=== PATIENT | male | born 1990 | race Caucasian/White ===

== ENCOUNTER 2020-01-26 15:21 | Emergency (ER) | payer MEDICAID, OTHER ==
[~2020-01-26] VITALS: Ht 188 cm; Wt 104.3 kg
--- NOTE | 2020-01-26 15:40 | NUR ---
Dr. Avendano at bedside for MSE
[2020-01-26] MEDS ORDERED: AZITHROMYCIN 250 MG TABLET ONE (15:42)
[2020-01-26] MEDS ORDERED: CEFTRIAXONE 500 MG VIAL ONE (15:42)
[2020-01-26] MEDS ORDERED: PENICILLIN G BENZATHINE 2.4 MMU/4 ML DISP.SYRIN IM ONE ×2 (15:42→15:45)
[2020-01-26] MEDS ORDERED: AZITHROMYCIN 250 MG TABLET PO ONE (15:45)
[2020-01-26] MEDS ORDERED: CEFTRIAXONE 1 G VIAL IM ONE (15:45)
--- NOTE | 2020-01-26 15:45 | NUR ---
present to addressograph operator Dr. Avendano at bedside
--- NOTE | 2020-01-26 15:52 | NUR ---
Patient discharged to home in stable condition. Written and verbal after care instructions given. Patient verbalizes understanding of instructions. Stressed follow up or return to ER for worsening s/s. Patient ambulated with steady gait. NAD noted
[2020-01-26 15:53] VITALS: BP 133/82
== END 2020-01-26 15:52 | disposition home or self-care (01) ==
LOC: ER 15:21
DX: A53.9 Syphilis, unspecified (principal); N48.1 Balanitis; R03.0 Elevated blood-pressure reading, without diagnosis of hypertension; Z86.19 Personal history of other infectious and parasitic diseases
CPT/HCPCS: 96372 ×2; 99284; J0696; A4663; Q0144

== ENCOUNTER 2020-03-24 08:23 | Emergency (ER) | payer OTHER ==
[~2020-03-24] VITALS: Ht 188 cm; Wt 104.3 kg
--- NOTE | 2020-03-24 08:44 | NUR ---
PT WAS EVALUATED BY DR PAREDES. PT WENT TO RESTROOM AND ELOPED FROM [facility] ([place]
== END 2020-03-24 09:05 | disposition left against medical advice (07) ==
LOC: ER 08:23
DX: S39.848A Other specified injuries of external genitals, initial encounter (principal); X58.XXXA Exposure to other specified factors, initial encounter; Y92.89 Other specified places as the place of occurrence of the external cause
CPT/HCPCS: A4663

== ENCOUNTER 2020-09-07 22:00 | Emergency (ER) | payer OTHER ==
[~2020-09-07] VITALS: Ht 188 cm; Wt 99.8 kg
--- NOTE | 2020-09-07 22:27 | NUR ---
Dr. Acosat at bedside for MSE.
[2020-09-07 22:44] VITALS: BP 151/93
--- NOTE | 2020-09-07 22:44 | NUR ---
Patient discharged to home in stable condition. Written and verbal after care instructions given. Patient verbalizes understanding of instructions. Stressed follow up or return to ER for worsening s/s.
== END 2020-09-07 22:45 | disposition home or self-care (01) ==
LOC: ER 22:02
DX: L40.9 Psoriasis, unspecified (principal)
CPT/HCPCS: A4663

== ENCOUNTER 2020-12-01 21:33 | Emergency (ER) | payer OTHER ==
[~2020-12-01] VITALS: Ht 188 cm; Wt 108.9 kg
[2020-12-01] MEDS ORDERED: SULFAMETH/TRIMETH 800/160 MG TABLET PO ONE (22:15)
[2020-12-01] MEDS ORDERED: PENICILLIN G BENZATHINE 2.4 MMU/4 ML DISP.SYRIN IM ONE ×2 (22:15→22:54)
[2020-12-01] MEDS ORDERED: DOXYCYCLINE HYCLATE 100 MG TABLET PO ONE (22:15)
[2020-12-01] MEDS ORDERED: CEFTRIAXONE 500 MG VIAL IM ONE (22:15)
[2020-12-01] MEDS ORDERED: DOXY100C2 PO (22:20)
[2020-12-01] MEDS ORDERED: SULF1TAB48 PO (22:20)
[2020-12-01] MEDS ORDERED: LIDOCAINE HCL 1% 20 ML VIAL ONE (22:53)
[2020-12-01] MEDS ORDERED: CEFTRIAXONE 500 MG VIAL ONE (22:54)
[2020-12-01] MEDS ORDERED: SULFAMETH/TRIMETH 800/160 MG TABLET ONE (22:54)
[2020-12-01] MEDS ORDERED: DOXYCYCLINE HYCLATE 100 MG TABLET ONE (22:54)
[2020-12-01 23:07] VITALS: BP 128/81
== END 2020-12-01 23:08 | disposition home or self-care (01) ==
LOC: ER 21:33
DX: A64 Unspecified sexually transmitted disease (principal); F17.210 Nicotine dependence, cigarettes, uncomplicated; F15.20 Other stimulant dependence, uncomplicated; L03.90 Cellulitis, unspecified; I10 Essential (primary) hypertension
CPT/HCPCS: 36415; 86592; 96372 ×2; 99284; J0696; J3490; A4663

== ENCOUNTER 2020-12-03 20:12 | Emergency (ER) | payer OTHER ==
[~2020-12-03] VITALS: Ht 188 cm; Wt 104.3 kg
[~2020-12-03 20:12] MED LIST: DOXY100C2 PO; SULF1TAB48 PO
--- NOTE | 2020-12-03 20:39 | NUR ---
Per Dr. Mcnulty, pt stable for discharge. DC instructions given and reviewed with pt. Verbalized understanding. Left ER in stable condition.
== END 2020-12-03 20:40 | disposition home or self-care (01) ==
LOC: ER 20:13
DX: N48.1 Balanitis (principal); F17.210 Nicotine dependence, cigarettes, uncomplicated; I10 Essential (primary) hypertension; Z86.19 Personal history of other infectious and parasitic diseases
CPT/HCPCS: A4663